=== PATIENT | female | born 1950 | race Caucasian/White ===

== ENCOUNTER 2020-01-30 13:14 | Emergency (ER) | payer MEDICARE ==
[~2020-01-30] VITALS: Ht 165.1 cm; Wt 45.0 kg
[~2020-01-30 13:14] MED LIST: ACET325T26 PO; FAMO20TA7 PO; PRED20TA PO
--- NOTE | 2020-01-30 13:22 | NUR ---
THIS IS A 69 YO F BIB EMS W/ C/O WEAKNESS, 06/05 LWR MID ABD PAIN AND DIARRHEA EVERY 15-20 MINUTES X4 DAYS. PT DENIES BLOOD IN STOOL, N/V/SOB/COUGH. REPORTS 100.8 TEMP AT HOME. PT REPORTS THAT SHE WAS RECENTLY ADMITTED HER FOR BILAT PNA IN WHICH SHE WAS INTUBATED FOR AND SPENT NUMEROUS DAYS INPATIENT. HAS BEEN TAKING IMMODIUM AT HOME W/ NO RELIEF. WEARS 4L O2 AT HOME FOR COPD. 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 PIV IN PLACE. PT RESTING ON PATRIC W/ MARQUES BRANDON AT BEDSIDE FOR EVAL. CALL LIGHT IN REACH. SIDE RAILS UPX2. AWAITING ORDERS.
[2020-01-30] MEDS ORDERED: ROSU10TA2 PO (13:30)
[2020-01-30] MEDS ORDERED: CHOL500062 PO (13:30)
[2020-01-30] MEDS ORDERED: FLUT1BLS3 IH (13:30)
[2020-01-30] MEDS ORDERED: ALBUTEROL SULFATE INH (13:30)
--- NOTE | 2020-01-30 13:30 | NUR ---
MED REC DONE.
--- NOTE | 2020-01-30 13:35 | NUR ---
REPORT RECEIVED FROM LIDIA SALDIVAR. [facility]
--- NOTE | 2020-01-30 14:02 | NUR ---
ASSUMING CARE OF PT FROM FLAQUITA MURILLO.
[2020-01-30 14:09] LABS: MEAN CORPUSCULAR HEMOGLOBIN 30.4 pg (27.0-34.8); MEAN CORPUSCULAR HGB CONC 33.1 g/dL (32.4-35.8); MEAN CORPUSCULAR VOLUME 91.9 fL (80-100); MEAN PLATELET VOLUME 7.3 fL (7.4-10.4); PLATELET COUNT 282 x10^3/uL (130-400); RED BLOOD COUNT 2.99 x10^6/uL (3.82-5.3); RED CELL DISTRIBUTION WIDTH 16.1 % (9.6-15.2)
[2020-01-30 14:17] LABS: ALANINE AMINOTRANSFERASE 15 U/L (12-78); ALBUMIN 2.7 g/dL (3.4-5.0); ANION GAP 5 mmol/L (5-15); CALCIUM 7.9 mg/dL (8.5-10.1); CHLORIDE 102 mmol/L (98-107); CREATININE 0.53 mg/dL (0.55-1.02)
[2020-01-30 14:19] LABS: ALKALINE PHOSPHATASE 67 U/L (45-117); BILIRUBIN,TOTAL 0.4 mg/dL (0.2-1.0); TOTAL PROTEIN 6.3 g/dL (6.4-8.2)
--- NOTE | 2020-01-30 14:28 | NUR ---
STOOL AND URINE COLLECTED AND SENT TO LAB.
[2020-01-30] MEDS ORDERED: SODIUM CHLORIDE 0.9% 1,000ML IVBOLUS ONE (14:30)
[2020-01-30 14:44] LABS: BASOPHILS % (AUTO) 0 % (0-1); EOSINOPHILS # (AUTO) 0.17 x10^3/uL (0-0.4); EOSINOPHILS % (AUTO) 1 % (1-7); LYMPHOCYTES # (AUTO) 0.47 x10^3/uL (1-3.4); LYMPHOCYTES % (AUTO) 2 % (22-44); MD SCAN; MONOCYTES # (AUTO) 1.55 x10^3/uL (0.2-0.8); MONOCYTES % (AUTO) 8 % (2-9); NEUTROPHILS # (AUTO) 17.87 x10^3/uL (1.8-6.8); NEUTROPHILS % (AUTO) 89 % (42-75)
--- NOTE | 2020-01-30 15:00 | NUR ---
CALL FROM LAB. NOT ENOUGH URINE FOR TESTING.
--- NOTE | 2020-01-30 15:18 | NUR ---
PT RESTING ON [employer] W/ CALL LIGHT IN REACH. CONNECTED TO MONITORING. AWAITING RESULTS.
[2020-01-30 15:24] LABS: CLOSTRIDIUM DIFFICILE ANTIGEN POSITIVE; CLOSTRIDIUM DIFFICILE TOXIN POSITIVE (Negative)
[2020-01-30] MEDS ORDERED: VANCOMYCIN 50 MG/ML ORAL SUSP PO SCH (15:30)
--- NOTE | 2020-01-30 15:52 | NUR ---
STRAIGHT CATH URINE SPECIMEN OBTAINED AND SENT TO LAB.
[2020-01-30 16:07] LABS: MICROSCOPIC AUTO
--- NOTE | 2020-01-30 16:40 | NUR ---
MED ANN FROM PHARMACY.
[2020-01-30] MEDS ORDERED: DICYCLOMINE 20 MG TABLET PO ONE (17:00)
[2020-01-30 17:01] VITALS: BP 97/55
--- NOTE | 2020-01-30 17:06 | NUR ---
DC INSTRUCTIONS GIVEN TO PATIENT. PATIENT VERBALIZED UNDERSTANDING. DC FROM MONITORING, INSTRUCTED TO CHANGE. AWAITING [facility] FOR TRANSPORT.
[2020-03-08] MEDS ORDERED: FIDA200T PO (12:08)
== END 2020-01-30 19:53 ==
LOC: ED 13:40
DX: R19.7 Diarrhea, unspecified (principal); Z20.828 Contact with and (suspected) exposure to other viral communicable diseases; A04.72 Enterocolitis due to Clostridium difficile, not specified as recurrent; R94.31 Abnormal electrocardiogram [ECG] [EKG]; E78.00 Pure hypercholesterolemia, unspecified; J44.9 Chronic obstructive pulmonary disease, unspecified
CPT/HCPCS: 36415; 71045; 80053; 81001; 83605; 84145; 85025; 87040; 87324; 89055; 93005; 96360; 99285; J3370; J7030

== ENCOUNTER → 2020-06-30 | Outpatient (CLI) | payer MEDICARE ==
[~2020-06-30] MED LIST changes: +ALBUTEROL SULFATE INH; +CHOL500062 PO; +FIDA200T PO; +FLUT1BLS3 IH; +ROSU10TA2 PO; +[UNRECOGNIZED DRUG - REMARK] INH
== END | disposition home or self-care (01) ==
LOC: STAR 14:41
PROVIDERS: ATTEND Colon & Rectal Surgery
DX: Z01.818 Encounter for other preprocedural examination (principal); Z20.828 Contact with and (suspected) exposure to other viral communicable diseases
CPT/HCPCS: 36415; 87635; 93005